=== PATIENT | male | born 1990 | race Caucasian/White ===

== ENCOUNTER 2024-08-13 07:58 | Outpatient (CLI) | payer OTHER, SELFPAY ==
--- NOTE | ~2024-08-13 | US_ITS ---
Limited Abdominal Sonogram: Real-time sonographic imaging of the right upper quadrant was performed. Clinical History: Abnormal blood chemistry findings Findings: The liver appears echogenic, with no evidence of bile duct dilatation. Focal hypoechoic ar ea present in the liver adjacent to the gallbladder fossa. There is a 7 mm probable hepatic cyst. The re is a 9 mm hypoechoic hepatic lesion in the right hepatic lobe, noncystic. Main portal vein demonst rates normal direction of flow. The gallbladder is well distended, and demonstrates a 5 mm gallbladde r wall polyp. The common bile duct measures 4 mm. The visualized pancreas, aorta, and IVC are unrema rkable. Impression: Diffuse fatty infiltration of the liver. Hypoechoic area adjacent to the gallbladder fossa could reflect focal fatty sparing. There is an lula tional 9 mm hypoechoic lesion in the right hepatic lobe, which could reflect mass or additional focal fatty sparing. Consider follow-up MR to further assess. 5 mm gallbladder wall polyp. Reviewed, dictated and finalized at [facility]. Impression: Diffuse fatty infiltration of the liver. Hypoechoic area adjacent to the gallbladder fossa could reflect focal fatty spa ring. There is an additional 9 mm hypoechoic lesion in the right hepatic lobe, which could reflect mass or additional focal fatty sparing. Consider follow-up MR to further assess. 5 mm gallbladder wall polyp.
== END 2024-08-13 07:59 | disposition home or self-care (01) ==
PROVIDERS: PCP Family Medicine; Visit Provider Physician Assistant Medical
DX: R79.89 Other specified abnormal findings of blood chemistry (principal); K82.4 Cholesterolosis of gallbladder
CPT/HCPCS: 76705

== ENCOUNTER 2024-09-05 12:33 | Outpatient (CLI) | payer OTHER, SELFPAY ==
--- NOTE | ~2024-09-05 | MR_ITS ---
MRI of the abdomen: Clinical indication: Hepatomegaly. Technique: Coronal SSFSE ARC, WATER:coronal LAVA-FLEX, Coronal 2D FIESTA FatSat, Axial SSFSE BH ARC, Axial 3D DualEcho BH, Axial SSFSE-IR, Axial DWI b=500, Axial 2D FIESTA FatSat, pre and dynamic postco ntrast Axial LAVA ARC, postcontrast Coronal In and Opposed phase LAVA FLEX. Following intravenous adm inistration of 15 cc MultiHance gadolinium, T1-weighted fat-sat imaging was performed in the axial an d coronal planes. Findings: There are several probable tiny gallbladder wall polyps. No definite stone seen. The common bile duct is normal in course and caliber. No filling defects are seen within the CBD. No evidence o f intrahepatic biliary ductal dilatation. The pancreatic duct is normal in size. There is diffuse signal loss in the liver on out of phase images relative to in phase images, compati ble diffuse fatty infiltration. There are several tiny hepatic cysts, largest measuring 6 mm. Liver m easures 17.6 cm in craniocaudal dimension. Spleen, pancreas, adrenals, kidneys appear normal. The aorta and the paraaortic regions appear normal . Impression: Diffuse fatty infiltration of liver. Several tiny hepatic cysts are present. No suspicious hepatic le apollo. Several probable tiny gallbladder wall polyps. Reviewed, dictated and finalized at location . Impression: Diffuse fatty infiltration of liver. Several tiny hepatic cysts are present. No suspicious hepatic lesion. Several probable tiny gallbladder wall polyps.
== END 2024-09-05 12:34 | disposition home or self-care (01) ==
LOC: ANHIMG 12:37
PROVIDERS: PCP Family Medicine; Visit Provider Student in an Organized Health Care Education/Training Program
DX: R16.0 Hepatomegaly, not elsewhere classified (principal); K76.0 Fatty (change of) liver, not elsewhere classified
CPT/HCPCS: 74183; A9577

== ENCOUNTER 2024-12-08 01:54 | Day surgery (SDC) | payer OTHER, SELFPAY ==
[2024-11-16 14:39] VITALS: BMI 25.9
[2024-12-08 09:56] VITALS: BP 139/96; PULSE 91; RESP 19; TEMP 36.2; O2SAT 98
--- NOTE | 2024-12-08 10:00 | WPDANESEPPF ---
Anes - Initial Pre Proc Eval Procedure: Operation Date: 12/08/24 10:30 Proposed Procedures p Colonoscopy - Jesus Ortiz MD Date/Time: 12/08/24 10:00 Surgeon: Jesus Ortiz MD Pre Op Diagnosis: family hx of cancer Patient Data Age: 34 Gender: M Height: 1.78 m Weight: 87.5 kg Last Vital Signs Temp 36.2 C L 12/08/24 09:56 Pulse 91 12/08/24 09:56 Resp 19 12/08/24 09:56 BP 139/96 H 12/08/24 09:56 Pulse Ox 98 12/08/24 09:56 O2 Del Method Room Air 12/08/24 09:56 Allergies Allergy/AdvReac Type Severity Reaction Status Date / Time No Known Allergies Allergy Verified 12/08/24 09:55 Home Medications ?Medication ?Instructions ?Recorded ?Confirmed ?Type No Home Medications 07/21/24 11/16/24 History Patient hx anesthesia problems: none Family hx anesthesia problems: none Results Review: All pre-operative results and documents have been reviewed as part of the pre-operative evaluation. [facility] Past Medical History Medical History (Updated 12/08/24 @ 10:00 by Matthias Gayle MD) Family history of colon cancer Overweight Family History Family History Mother Colon cancer Grandparent Colon cancer Social History Social History Smoking status: Former smoker Tobacco type: cigarettes Alcohol intake: never Substance use: never Substance use type: does not use Do You Feel Safe in your Home?: Yes Lack of Transportation: No Lack of Food: Never True Current Housing: I Have Housing Concerned About Future Housing: No Difficulty Paying Gas/Electric Bills: No Difficulty Paying for Meds: No Currently Unemployed: No Difficulty w/ Childcare or Family Care: No Living arrangements: with family Occupation/Education: occupation Gender identity (if verbalized by the patient): Male Sexual Orientation (if Verbalized by the Patient): Straight or Heterosexual Spiritual care concerns: No Anes - Eval Final PreProcedure Day of Procedure 12/08/24 10:00 Patient weight: overweight Heart: regular rate and rhythm Lungs: clear to auscultation Airway: Mallampati scale class II Neurological: alert and oriented Last oral intake: >/= 8 hours ASA classification: II Emergent: no Anesthetic plan: proceed Anesthesia type and monitoring: general GIVS and standard monitoring Results Review: All pre-operative results and documents have been reviewed as part of the pre-operative evaluation. Informed Consent: The patient's anesthetic plan and its attendant risks and benefits were discussed with the patient/family/POA. Questions were solicited and answers provided to the satisfaction of the patient/family/POA.
[2024-12-08] MEDS: LACTATED RINGERS 1,000 ML 30 ML IV CONT (10:01)
--- NOTE | 2024-12-08 10:14 | PM.HPGS ---
History of Present Illness History of Present Illness Consent: Risks, benefits, and alternatives have been discussed and questions answered. Patient agrees to proceed with procedure. Chief complaint: family hx of colon polyp Narrative: Gamaliel Garcia is a 34 year old male here for first screening colonoscopy, family history of polyps. Review of Systems Review of Systems: All systems reviewed & are unremarkable except as noted in HPI and below PMFSH Past Medical History Medical History (Updated 12/08/24 @ 10:16 by Jesus Ortiz MD) Family hx colonic polyps Family history of colon cancer Overweight Family History Family History Mother Colon cancer Grandparent Colon cancer Social History Social History Smoking status: Former smoker Tobacco type: cigarettes Alcohol intake: never Substance use: never Substance use type: does not use Do You Feel Safe in your Home?: Yes Lack of Transportation: No Lack of Food: Never True Current Housing: I Have Housing Concerned About Future Housing: No Difficulty Paying Gas/Electric Bills: No Difficulty Paying for Meds: No Currently Unemployed: No Difficulty w/ Childcare or Family Care: No Living arrangements: with family Occupation/Education: occupation Gender identity (if verbalized by the patient): Male Sexual Orientation (if Verbalized by the Patient): Straight or Heterosexual Spiritual care concerns: No Meds Home Medications and Allergies Home Medications ?Medication ?Instructions ?Recorded ?Confirmed ?Type No Home Medications 07/21/24 11/16/24 History Allergies Allergy/AdvReac Type Severity Reaction Status Date / Time No Known Allergies Allergy Verified 12/08/24 09:55 Vital Signs Vital Signs - 24 hr 12/08/24 09:56 Temperature 97.2 F L Pulse Rate 91 Respiratory Rate 19 Blood Pressure 139/96 H Pulse Oximetry 98 Oxygen Delivery Room Air Exam Const: General: comfortable and no acute distress HENMT: Face/Nose/Sinus: Normal nares present Eyes: General: appearance normal, both eyes and all related structures Neck: Neck: no JVD Resp: Auscultation: clear to auscultation bilaterally Cardio: Rate: regular rate Rhythm: regular rhythm GI: Inspection: non-distended GI Palp: Yes Soft to palpation Skin: General skin exam: normal color Neuro: General: gait normal Speech: normal speech Extrem: General: normal to inspection Psych: Mental Status: mental status grossly normal Assessment and Plan Assessment and plan (1) Family hx colonic polyps: Code(s): Z83.719 - Family history of colon polyps, unspecified Status: Acute Assessment and Plan: colonoscopy
[2024-12-08 10:31] VITALS: BP 113/75; PULSE 95; RESP 18; O2SAT 97
[2024-12-08 10:41] VITALS: BP 131/89; PULSE 94; RESP 20; O2SAT 94
[2024-12-08] MEDS: ONDANSETRON INJ 4 MG/2 ML VIAL IV PUSH (10:43)
[2024-12-08 10:51] VITALS: BP 125/87; PULSE 95; RESP 20; O2SAT 95
--- NOTE | 2024-12-08 11:01 | SUR.PHASEII ---
1038: PT VOMITING CLEAR MUCOUSY VOMIT WITH SOME DARK STREAKS, DR CHARLES NOTIFIED, NEW ORDERS RECEIVED, NEW ORDERS FOR ZOFRAN IVP CARRIED OUT, SPOUSE AT BEDSIDE, PT VOMITED APPROXIMATELY 200ML. 1100: PT FEELING BETTER AND NO LONGER VOMITING, ICE CHIPS GIVEN WITHOUT ISSUE. 1110: PT ABLE TO GET SELF UP AND DRESS WITHOUT ISSUE, DISCHARGE INSTRUCTIONS GIVEN TO PT AND SPOUSE, STATES UNDERSTANDING.
== END 2024-12-08 11:21 | disposition home or self-care (01) ==
PROVIDERS: PCP Family Medicine; Referring Provider Physician Assistant Medical; Visit Provider Internal Medicine Gastroenterology
PROC: 0DJD8ZZ Inspection of Lower Intestinal Tract, Via Natural or Artificial Opening Endoscopic (ICD-10-PCS; CPT 45378; principal; 2024-12-08 10:30)
DX: Z12.11 Encounter for screening for malignant neoplasm of colon (principal); K64.8 Other hemorrhoids; Z87.891 Personal history of nicotine dependence; Z83.719 Family history of colon polyps, unspecified; Z80.0 Family history of malignant neoplasm of digestive organs
CPT/HCPCS: 45378; J2405; J2704; J7120